=== PATIENT | female | born 1935 | race Caucasian/White ===

== ENCOUNTER → 2020-07-19 | Day surgery (SDC) | payer MEDICARE, OTHER ==
[~2020-07-19] MED LIST: ASPIRIN EC81 MG PO; BRILINTA90 MG PO; FENTANYL CITRATE/PF 100MCG/2 ML INJ ONE; LOSARTAN POTASS25 MG PO; METOPROLOL TART50 MG PO; MIDAZOLAM HCL 2 MG/2 ML VIAL ONE; OMEGA-31000 MG PO; OR PHACO EYE KIT ONE; PRALUENT P150 MG/1 M INH; PREOP PHACO EYE KIT ONE
[2020-07-19 11:45] VITALS: BP 127/60
== END | disposition home or self-care (01) ==
LOC: OR 08:58
PROVIDERS: ATTEND Ophthalmology
DX: H25.11 Age-related nuclear cataract, right eye (principal); I10 Essential (primary) hypertension; I25.810 Atherosclerosis of coronary artery bypass graft(s) without angina pectoris; E78.5 Hyperlipidemia, unspecified; I44.0 Atrioventricular block, first degree; F41.9 Anxiety disorder, unspecified; Z88.8 Allergy status to other drugs, medicaments and biological substances; Z01.812 Encounter for preprocedural laboratory examination; Z11.59 Encounter for screening for other viral diseases; Z79.82 Long term (current) use of aspirin; Z95.1 Presence of aortocoronary bypass graft
CPT/HCPCS: 66984; J2250; J3010; U0002; V2632